=== PATIENT | female | born 1985 | race Two or more races ===

== ENCOUNTER → 2019-07-11 | Emergency (ER) | payer OTHER ==
[~2019-07-11] VITALS: Ht 180.3 cm; Wt 145.1 kg
== END | disposition home or self-care (01) ==
LOC: ER 11:24
DX: S61.241A Puncture wound with foreign body of left index finger without damage to nail, initial encounter (principal); W45.8XXA Other foreign body or object entering through skin, initial encounter; Y93.89 Activity, other specified; Y92.69 Other specified industrial and construction area as the place of occurrence of the external cause; Y99.8 Other external cause status

== ENCOUNTER → 2019-08-06 08:47 | Outpatient (CLI) | payer OTHER | END | disposition home or self-care (01) | LOC: LAB 08:47 | DX: J11.1 Influenza due to unidentified influenza virus with other respiratory manifestations (principal) ==

== ENCOUNTER → 2020-02-09 13:25 | Outpatient (CLI) | payer OTHER | END | disposition home or self-care (01) | LOC: CERTIFICAD 13:25 → LAB 13:25 | PROVIDERS: ATTEND Family Medicine | DX: Z11.1 Encounter for screening for respiratory tuberculosis (principal) ==

== ENCOUNTER 2021-05-15 09:00 | Outpatient (CLI) | payer OTHER | END 2021-05-15 09:15 | disposition home or self-care (01) | LOC: PPH VACUNA 09:00 | PROVIDERS: ATTEND Emergency Medicine Pediatric Emergency Medicine | DX: Z23 Encounter for immunization (principal) ==

== ENCOUNTER 2021-07-05 10:00 | Outpatient (CLI) | payer OTHER | END 2021-07-05 14:31 | disposition home or self-care (01) | LOC: PPH VACUNA 10:00 | DX: Z23 Encounter for immunization (principal) ==